=== PATIENT | male | born 1990 | race Caucasian/White ===

== ENCOUNTER 2021-08-27 08:11 | Emergency (ER) | payer BC, SELFPAY ==
[2021-08-27 08:20] VITALS: BP 154/99; PULSE 94; RESP 18; TEMP 36.6; O2SAT 100
--- NOTE | 2021-08-27 08:20 | ED.BACK ---
HPI - Back Pain/Injury General Chief Complaint: Back Pain/Injury Stated Complaint: back pain Time Seen by Provider: 08/27/21 08:20 Source: patient Mode of arrival: ambulatory Limitations: no limitations History of Present Illness HPI Narrative: Mr. Clayton is a 31-year-old male patient presenting to the clinic today with complaints of left upper back pain x5 years. He reports that this pain has been gradually getting worse over the last couple weeks. States his pain was worse last night causing him to cry. Rates pain currently as 7 out of 10. States the pain is stabbing/burning to the left upper back just below the scapula. Pain is worse with movement. He denies any injury. He works for [employer] and has to lift heavy packages. MD elicited complaint: back pain Related Data Home Medications Medication Instructions Recorded Confirmed fexofenadine [Magy Allergy] 60 mg PO Q12H 08/27/21 08/27/21 Allergies Allergy/AdvReac Type Severity Reaction Status Date / Time Cat Dander Allergy Unknown Congested Uncoded 08/27/21 08:31 Review of Systems Review of Systems: Pertinent positives per HPI. Patient denies any fever, chills, rash, headache, visual changes, dizziness, cough, runny nose, sore throat, shortness of breath, chest pain, palpitations, nausea, vomiting, diarrhea, constipation, abdominal pain, or any urinary issues. PMFSH Comments At the time of my signature, I reviewed and agree with the nursing past medical, surgical, social, and family history. There is no relevant family history pertinent to the patient complaint. Exam Narrative: General: Well-developed, well nourished, in no apparent distress Head: Normocephalic, atraumatic. Cardio: Regular rate and rhythm, s1 and s2 normal, no murmur appreciated. Resp: Clear to auscultation bilaterally, no rhonchi, rales, wheezing or rubs. Musculoskeletal: No deformity, tender to palpation over the left rhomboid muscle, pain with raising left arm and lowering left arm, grossly normal range of motion, muscle strength strong and equal to BUE, normal gait and station Course Course Emergency Course: Portions of this record may have been created with voice recognition software. Level of Care: Express Care Visit Vital Signs Vital signs: Vital signs reviewed MDM - Back Pain/Injury MDM Narrative Medical decision making narrative: At the time of assessment patient is resting comfortably on the exam table. He has been having left upper back pain x5 years have gradually gotten worse over the last 2 weeks worse being yesterday after working and lifting heavy packages. Has pain directly over the left rhomboid muscle is aggravated by lifting and lowering arm as well as resistance. I suspect rhomboid muscular strain and have prescribed Flexeril and naproxen for this. Other supportive measures were also discussed with patient discharge instructions were given. Work note given to not lift more than 20 pounds x 1 week. Will need to follow-up with his PCP for further eval if symptoms persist. Differential Diagnosis Differential diagnosis: Likely lumbar radiculopathy, sciatica, thoracic back pain and discitis Discharge Plan Discharge Clinical Impression: Pain of rhomboid muscle, Muscle strain Patient Disposition: Home, Self-Care Condition: Stable Instructions: Muscle Strain (ED) Additional Instructions: May apply heat or ice to the affected area Consider massage May apply blue emu, lidocaine, or Aspercreme to the affected area Take naproxen and Flexeril as directed Flexeril can cause sedation- if needed may take 1 tab at HS if this medication is causing you to be to drowsy Light duty note given for work x1 week Rhomboid stretches as discussed. Follow-up with your PCP in 5 to 7 days if symptoms persist or sooner if they worsen Prescriptions: New naproxen 500 mg tablet 500 mg PO BID PRN (Reason: pain) 15 Days Qty: 30 RF: 0 cyclobenzaprine 10 mg tablet
== END 2021-08-27 08:45 | disposition home or self-care (01) ==
PROVIDERS: Emergency Provider Nurse Practitioner Family
DX: S29.012A Strain of muscle and tendon of back wall of thorax, initial encounter (principal); X50.0XXA Overexertion from strenuous movement or load, initial encounter; Y99.0 Civilian activity done for income or pay
CPT/HCPCS: 99213; G0463